=== PATIENT | male | born 1970 | race African-American/Black ===

== ENCOUNTER 2017-10-26 00:39 | Emergency (ER) | payer MEDICAID ==
[~2017-10-26] VITALS: Ht 177.8 cm; Wt 99.8 kg
[2017-10-26 00:50] VITALS: BP 137/99
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
[2017-10-26] MEDS ORDERED: Magnesium Citrate Liq Btl ORAL ONE ×2 (01:15→04:00)
[2017-10-26] MEDS ORDERED: Fleet's Enema 133ml RECTAL ONE ×2 (01:15→04:00)
[2017-10-26 01:54] LABS: BASOPHILS % (AUTO) 0.8 % (0.0-2.0); EOSINOPHILS % (AUTO) 5.6 % (0.0-3.0); HEMATOCRIT 45.1 % (42.0-52.0); HEMOGLOBIN 15.1 G/DL (14.2-18.0); LYMPHOCYTES % (AUTO) 17.2 % (20.0-45.0); MEAN CORPUSCULAR VOLUME 95 FL (80-99); MONOCYTES % (AUTO) 12.2 % (1.0-10.0); NEUTROPHILS % (AUTO) 64.1 % (45.0-75.0); PLATELET COUNT 190 K/UL (150-450); RED BLOOD COUNT 4.75 M/UL (4.70-6.10); RED CELL DISTRIBUTION WIDTH 11.7 % (11.6-14.8); WHITE BLOOD COUNT 6.7 K/UL (4.8-10.8)
[2017-10-26 02:03] LABS: ANION GAP 8 mmol/L (5-15); BLOOD UREA NITROGEN 28 mg/dL (7-18); CARBON DIOXIDE 27 MMOL/L (21-32); CHLORIDE 99 MMOL/L (98-107); CREATININE 1.6 MG/DL (0.55-1.30); POTASSIUM 4.2 MMOL/L (3.5-5.1); SODIUM 134 MMOL/L (136-145)
[2017-10-26 02:10] LABS: ALANINE AMINOTRANSFERASE 63 U/L (12-78); ALBUMIN 3.4 G/DL (3.4-5.0); ALBUMIN/GLOBULIN RATIO 0.8 (1.0-2.7); ALKALINE PHOSPHATASE 56 U/L (46-116); ASPARTATE AMINO TRANSFERASE 57 U/L (15-37)
[2017-10-26 02:30] VITALS: BP 124/82
[2017-10-26] MEDS ORDERED: COLACE100 MG ORAL (04:00)
[2017-10-26] MEDS ORDERED: SENNA LAX8.6 MG PO (04:00)
[2017-10-26 04:15] VITALS: BP 120/78
[2017-10-26 04:40] VITALS: BP 120/78
[2017-10-26 04:43] LABS: APPEARANCE,URINE CLEAR; BILIRUBIN, URINE NEGATIVE (NEGATIVE); COLOR,URINE PALE YELLOW; GLUCOSE, URINE (UA) NEGATIVE (NEGATIVE); KETONES,URINE NEGATIVE (NEGATIVE); LEUKOCYTE ESTERASE ,URINE NEGATIVE (NEGATIVE); NITRITE,URINE NEGATIVE (NEGATIVE); PH,URINE 6 (4.5-8.0); PROTEIN,URINE 1+ (NEGATIVE); UROBILINOGEN,URINE NORMAL MG/DL (0.0-1.0)
--- NOTE | 2017-10-26 11:04 | Diagnostic Imaging Report ---
Indication: Abdominal pain Technique: Supine view of the abdomen Comparison: none Findings: Exam is limited due to body habitus. Bowel gas pattern is unremarkable. No unusual masses or calcifications. Impression: No acute process
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
== END 2017-10-26 04:40 | disposition home or self-care (01) ==
LOC: EMR 01:54
DX: K59.00 Constipation, unspecified (principal); S36.039D Unspecified laceration of spleen, subsequent encounter; S22.42XD Multiple fractures of ribs, left side, subsequent encounter for fracture with routine healing; J98.11 Atelectasis; J90 Pleural effusion, not elsewhere classified; V49.9XXD Car occupant (driver) (passenger) injured in unspecified traffic accident, subsequent encounter
CPT/HCPCS: 36415; 74018; 74176; 80053; 81003; 83690; 85025; 96374; 99284; J2405

== ENCOUNTER 2018-05-13 01:09 | Emergency (ER) | payer SELFPAY ==
[~2018-05-13] VITALS: Ht 177.8 cm; Wt 99.8 kg
[~2018-05-13 01:09] MED LIST: COLACE100 MG ORAL; SENNA LAX8.6 MG PO
[2018-05-13] MEDS ORDERED: IBUPROFEN600 MG ORAL (02:07)
[2018-05-13 02:12] VITALS: BP 157/98
--- NOTE | 2018-05-13 02:15 | Emergency Room Report ---
History of Present Illness General Chief Complaint: Lower Extremity Injury Source: Patient Present Illness HPI Patient reports stubbing and hitting his small toe approximately 4 days ago As the pain persisted with walking he presents for further eval Denies any ankle pain denies any knee pain Pain to the lateral aspect of the foot is 4 out of 10 Denies any open cuts or wounds Denies any focal weakness Allergies: Coded Allergies: No Known Allergies (Unverified , 10/26/17) Patient History Past Medical History: see triage record Pertinent Family History: none Reviewed Nursing Documentation: PMH: Agreed; PSxH: Agreed Nursing Documentation-PMH Past Medical History: No History, Except For Hx Hypertension: Yes Review of Systems All Other Systems: negative except mentioned in HPI Physical Exam Vital Signs Date Time Temp Pulse Resp B/P (MAP) Pulse Ox O2 Delivery O2 Flow Rate FiO2 05/13/18 01:11 97.9 95 16 159/112 94 Room Air Sp02 EP Interpretation: reviewed, normal General Appearance: well appearing, no apparent distress Head: normocephalic, atraumatic Eyes: bilateral eye PERRL, bilateral eye EOMI ENT: hearing grossly normal, normal pharynx, TMs + canals normal, uvula midline Neck: full range of motion, supple, no meningismus, no bony tend Respiratory: lungs clear, normal breath sounds, no rhonchi, no respiratory distress, no retraction, no accessory muscle use Cardiovascular #1: normal peripheral pulses, regular rate, rhythm, no edema, no gallop, no JVD, no murmur Gastrointestinal: normal bowel sounds, non tender, soft, no mass, no organomegaly, non-distended, no guarding, no hernia, no pulsatile mass, no rebound Genitourinary: no CVA tenderness Musculoskeletal: other - Tender on palpation of the distal metatarsal fifth toe Neurologic: oriented x3, responsive, driver recruiter III-XII nml as tested, motor strength/ tone normal, sensory intact Psychiatric: mood/affect normal Skin: normal color, no rash, warm/dry, palpation normal Lymphatic: normal inspection, no adenopathy Procedures Splinting Progress Postop shoe is applied With appropriate relief of pressure on the small toe Patient provided crutches and will be nonweightbearing remains neurovascularly intact on recheck by myself Medical Decision Making Diagnostic Impression: Primary Impression: foot fracture ER Course Given the history and exam x-ray imaging was obtained It is evidence of distal metatarsal fracture This is almost 5 days post fracture now patient provided with acute intervention and will be nonweightbearing with close outpatient follow-up Other X-Ray Diagnostic Results Other X-Ray Diagnostic Results : X-Ray ordered: Left foot # of Views/Limited Vs Complete: 3 View Indication: Pain EP Interpretation: Yes Interpretation: no dislocation, no soft tissue swelling, other - Positive proximal phalangeal fracture Impression: Other - Acute fracture Electronically Signed by: Maribel Francisco DO Last Vital Signs Date Time Temp Pulse Resp B/P (MAP) Pulse Ox O2 Delivery O2 Flow Rate FiO2 05/13/18 01:11 97.9 95 16 159/112 94 Room Air Status: improved Disposition: HOME, SELF-CARE Condition: Improved Scripts Ibuprofen* (MOTRIN*) 600 Mg Tablet 600 MG ORAL Q8H PRN for For Pain, #20 TAB 0 Refills Prov: Maribel Francisco DO 05/13/18 Referrals: NOT CHOSEN IPA/MD,REFERRING (PCP) Patient Instructions: Metatarsal Fracture Additional Instructions: Patient is provided with the discharge instructions notified to follow up with primary doctor in the next 2-3 days otherwise return to the er with any worsening symptoms. Please note that this report is being documented using [employer] technology. This can lead to erroneous entry secondary to incorrect interpretation by the dictating instrument. Maribel Francisco DO May 13, 2018 02:15
--- NOTE | 2018-05-13 11:07 | Diagnostic Imaging Report ---
Indication: Pain in left toes after trauma Technique: 3 views left foot Comparison: none Findings: There is an acute oblique fracture of the fifth proximal phalanx. There is a slightly distracted oblique fracture of the medial base of the first proximal phalanx. This involves the articular surface. The fracture line is somewhat indistinct for this fracture. No other acute fractures. No dislocations. The joint spaces are preserved. Impression: Positive for acute fifth proximal phalangeal fracture. This is concordant with findings reported in the electronic medical record by the ER physician Positive for first proximal phalangeal fracture. Fracture line is somewhat indistinct, so this may be subacute rather than acute. Correlate with clinical findings. This finding was reported to Dr. Lao in the emergency room at the time of interpretation.
== END 2018-05-13 02:12 | disposition home or self-care (01) ==
LOC: EMR 01:21
DX: S92.352A Displaced fracture of fifth metatarsal bone, left foot, initial encounter for closed fracture (principal); M79.672 Pain in left foot; W22.09XA Striking against other stationary object, initial encounter; Y93.9 Activity, unspecified; Y92.9 Unspecified place or not applicable; Y99.9 Unspecified external cause status
CPT/HCPCS: 29515; 99283

== ENCOUNTER 2019-02-04 03:20 | Emergency (ER) | payer OTHER ==
[~2019-02-04] VITALS: Ht 177.8 cm; Wt 95.3 kg
[~2019-02-04 03:20] MED LIST changes: +IBUPROFEN600 MG ORAL
[2019-02-04 03:37] VITALS: BP 151/103
[2019-02-04] MEDS ORDERED: Morphine Sulfate 4mg/ml Inj (IV USE ONLY) IVP ONE (03:45)
--- NOTE | 2019-02-04 03:45 | NUR ---
ED Nurse Note: Patient waked in to ER c/o left flank pain 02/20. Stated that had difficulty to pee at home. AAO x4, VSS at this time, skin is dry warm to touch.
--- NOTE | 2019-02-04 03:47 | Emergency Room Report ---
History of Present Illness General Chief Complaint: Male Urogenital Problems Source: Patient Present Illness HPI 48-year-old male history of kidney stones presents with right flank pain that started suddenly 3 hours prior to arrival, he endorses a sharp pain, no aggravating or relieving factors, he endorses a spasm, that is constant, patient denies any dysuria, no fever no chills, no chest pain, no shortness of breath, patient presents for evaluation for kidney stones Allergies: Coded Allergies: No Known Allergies (Unverified , 10/26/17) Patient History Past Medical History: see triage record Social History: Reports: drug use - marijuana Reviewed Nursing Documentation: PMH: Agreed; PSxH: Agreed Nursing Documentation-PMH Hx Hypertension: Yes Review of Systems Constitutional: Denies: chills, fever Eye: Denies: blurred vision, double vision ENT: Denies: throat pain, nasal discharge Respiratory: Denies: cough, shortness of breath Cardiovascular: Denies: chest pain, palpitations Gastrointestinal: Reports: abdominal pain, nausea; Denies: diarrhea, vomiting Genitourinary: Denies: dysuria, pain Musculoskeletal: Denies: back pain, muscle pain Skin: Denies: rash, lesions Neurological: Denies: headache, focal weakness Hematologic/Lymphatic: Denies: easy bleeding, easy bruising All Other Systems: negative except mentioned in HPI Physical Exam Vital Signs Date Time Temp Pulse Resp B/P (MAP) Pulse Ox O2 Delivery O2 Flow Rate FiO2 02/04/19 03:24 98.2 84 20 151/103 (119) 97 Room Air Sp02 EP Interpretation: reviewed, normal General Appearance: well appearing, no apparent distress, alert Head: normocephalic, atraumatic Eyes: bilateral eye PERRL, bilateral eye EOMI ENT: uvula midline, moist mucus membranes Neck: supple, thyroid normal, supple/symm/no masses Respiratory: lungs clear, no respiratory distress, no retraction, no accessory muscle use Cardiovascular #1: normal peripheral pulses, regular rate, rhythm, no edema, no gallop, no murmur Gastrointestinal: non tender, soft, no guarding, no rebound Musculoskeletal: normal inspection Neurologic: alert, oriented x3 Psychiatric: mood/affect normal Skin: no rash, warm/dry Medical Decision Making Diagnostic Impression: Primary Impression: Ureterolithiasis ER Course 48-year-old male presents with right flank pain, on the differential includes appendicitis, renal colic, ureterolithiasis, SBO, patient found to have a kidney stone on CT, fluids given, patient's pain is well controlled Repeat examination, patient's abdomen is completely soft, nontender Cr. unchanged from 2018 Cures report ran, negative for recent scripts Laboratory Tests Test 02/04/19 04:30 02/04/19 05:10 White Blood Count 9.2 K/UL (4.8-10.8) Red Blood Count 4.60 M/UL (4.70-6.10) L Hemoglobin 14.3 G/DL (14.2-18.0) Hematocrit 43.6 % (42.0-52.0) Mean Corpuscular Volume 95 FL (80-99) Mean Corpuscular Hemoglobin 31.1 PG (27.0-31.0) H Mean Corpuscular Hemoglobin Concent 32.8 G/DL (32.0-36.0) Red Cell Distribution Width 12.7 % (11.6-14.8) Platelet Count 212 K/UL (150-450) Mean Platelet Volume 6.2 FL (6.5-10.1) L Neutrophils (%) (Auto) 78.3 % (45.0-75.0) H Lymphocytes (%) (Auto) 13.8 % (20.0-45.0) L Monocytes (%) (Auto) 6.3 % (1.0-10.0) Eosinophils (%) (Auto) 1.0 % (0.0-3.0) Basophils (%) (Auto) 0.6 % (0.0-2.0) Sodium Level 137 MMOL/L (136-145) Potassium Level 3.3 MMOL/L (3.5-5.1) L Chloride Level 101 MMOL/L (98-107) Carbon Dioxide Level 28 MMOL/L (21-32) Anion Gap 8 mmol/L (5-15) Blood Urea Nitrogen 22 mg/dL (7-18) H Creatinine 1.6 MG/DL (0.55-1.30) H Estimate Glomerular Filtration Rate 56.0 mL/min (>60) Glucose Level 150 MG/DL (74-106) H Calcium Level 9.5 MG/DL (8.5-10.1) Total Bilirubin 0.4 MG/DL (0.2-1.0) Aspartate Amino Transferase (AST) 28 U/L (15-37) Alanine Aminotransferase (ALT) 26 U/L (12-78) Alkaline Phosphatase 49 U/L (46-116) Total Protein 7.5 G/DL (6.4-8.2) Albumin 4.3 G/DL (3.4-5.0) Globulin 3.2 g/dL Albumin/Globulin Ratio 1.3 (1.0-2.7) Lipase 333 U/L (73-393) Urine Color Pale yellow Urine Appearance Clear Urine pH 6 (4.5-8.0) Urine Specific [place] 1.015 (1.005-1.035) Urine Protein Negative (NEGATIVE) Urine Glucose (UA) Negative (NEGATIVE) Urine Ketones Negative (NEGATIVE) Urine Blood 5+ (NEGATIVE) H Urine Nitrite Negative (NEGATIVE) Urine Bilirubin Negative (NEGATIVE) Urine Urobilinogen Normal MG/DL (0.0-1.0) Urine Leukocyte Esterase Negative (NEGATIVE) Urine RBC Tntc /HPF (0 - 0) H Urine WBC 0 /HPF (0 - 0) Urine Squamous Epithelial Cells None /LPF (NONE/OCC) Urine Bacteria Few /HPF (NONE) Cr. unchanged from 2018 Cures report ran, negative for recent scripts CT/MRI/US Diagnostic Results CT/MRI/US Diagnostic Results : Impression Preliminary Findings Only See Final Report For Complete Findings CT ABDOMEN & PELVIS Without Contrast: Comparison: 10/26/2017. A 4 mm stone is seen in the distal right ureter resulting in mild/moderate right -sided hydroureteronephrosis with associated perinephric and periureteral fat stranding. Bilateral nonobstructive nephrolithiasis is also noted. Remaining solid organs are grossly unremarkable this noncontrast study. Normal appendix. No bowel obstruction. No free air. Radiologist: Jeff Ridley MD Study ready at 04:37 and initial results transmitted at 05:05 Last Vital Signs Date Time Temp Pulse Resp B/P (MAP) Pulse Ox O2 Delivery O2 Flow Rate FiO2 02/04/19 03:37 98.2 20 151/103 97 Room Air 02/04/19 03:24 84 Disposition: HOME, SELF-CARE Scripts Cephalexin* (CEPHALEXIN*) 500 Mg Tablet 500 MG ORAL EVERY 6 HOURS, #40 CAP Prov: Khris Hunt MD 02/04/19 Tamsulosin HCl (Flomax) 0.4 Mg Cap.er.24h 0.4 MG ORAL DAILY, #30 CAP Prov: Khris Hunt MD 02/04/19 Naproxen* (NAPROSYN*) 250 Mg Tablet 250 MG ORAL BID PRN for For Pain, #20 TAB 0 Refills Prov: Khris Hunt MD 02/04/19 Hydrocodone Bit/Acetaminophen 5-325* (NORCO 5-325*) 1 Each Tablet 1 TAB ORAL Q6H PRN for For Pain, #12 TAB 0 Refills Prov: Khris Hunt MD 02/04/[address]: [facility] Patient Instructions: Kidney Stones, [id number], Renal Colic Additional Instructions: The patient was provided with discharge instructions, notified to follow-up with a primary care doctor and or specialist in the next 24-48 hours, and to return to the ED if they have worsening of their symptoms. Please note that this report is being documented using [email or web address] technology. This can lead to erroneous entry secondary to incorrect interpretation by the dictating instrument. Follow Up with urology in 24 to 48 hours Khris Hunt MD Feb 04, 2019 03:47
[2019-02-04] MEDS ORDERED: Morphine Sulfate 4mg/ml Inj (IV USE ONLY) ONE (03:55)
--- NOTE | 2019-02-04 04:20 | NUR ---
ED Nurse Note: Override Morphine and Zofran, since it is not in the pyxes.
[2019-02-04 04:37] LABS: BASOPHILS % (AUTO) 0.6 % (0.0-2.0); HEMATOCRIT 43.6 % (42.0-52.0); HEMOGLOBIN 14.3 G/DL (14.2-18.0); LYMPHOCYTES % (AUTO) 13.8 % (20.0-45.0); MEAN CORPUSCULAR VOLUME 95 FL (80-99); MONOCYTES % (AUTO) 6.3 % (1.0-10.0); NEUTROPHILS % (AUTO) 78.3 % (45.0-75.0); PLATELET COUNT 212 K/UL (150-450); RED CELL DISTRIBUTION WIDTH 12.7 % (11.6-14.8); WHITE BLOOD COUNT 9.2 K/UL (4.8-10.8)
[2019-02-04 04:44] LABS: ANION GAP 8 mmol/L (5-15); BLOOD UREA NITROGEN 22 mg/dL (7-18); CALCIUM 9.5 MG/DL (8.5-10.1); CARBON DIOXIDE 28 MMOL/L (21-32); CHLORIDE 101 MMOL/L (98-107); CREATININE 1.6 MG/DL (0.55-1.30); POTASSIUM 3.3 MMOL/L (3.5-5.1); SODIUM 137 MMOL/L (136-145)
[2019-02-04 04:48] LABS: ALANINE AMINOTRANSFERASE 26 U/L (12-78); ALBUMIN 4.3 G/DL (3.4-5.0); ALBUMIN/GLOBULIN RATIO 1.3 (1.0-2.7); ALKALINE PHOSPHATASE 49 U/L (46-116); ASPARTATE AMINO TRANSFERASE 28 U/L (15-37); BILIRUBIN,TOTAL 0.4 MG/DL (0.2-1.0)
[2019-02-04 05:27] LABS: APPEARANCE,URINE CLEAR; BILIRUBIN, URINE NEGATIVE (NEGATIVE); COLOR,URINE PALE YELLOW; GLUCOSE, URINE (UA) NEGATIVE (NEGATIVE); KETONES,URINE NEGATIVE (NEGATIVE); LEUKOCYTE ESTERASE ,URINE NEGATIVE (NEGATIVE); NITRITE,URINE NEGATIVE (NEGATIVE); PH,URINE 6 (4.5-8.0); PROTEIN,URINE NEGATIVE (NEGATIVE); UROBILINOGEN,URINE NORMAL MG/DL (0.0-1.0)
[2019-02-04 05:35] VITALS: BP 148/98
[2019-02-04] MEDS ORDERED: NORCO 5-325 TA1 EACH ORAL (05:37)
[2019-02-04] MEDS ORDERED: NAPROXEN250 MG ORAL (05:37)
[2019-02-04] MEDS ORDERED: FLOMAX0.4 MG ORAL (05:37)
[2019-02-04] MEDS ORDERED: CEPHALEXIN500 M1 ORAL (05:49)
[2019-02-04] MEDS ORDERED: cefTRIAXone 1 GM in NS 55 ML IVPB SCH (06:00)
[2019-02-04 06:35] VITALS: BP 148/98
--- NOTE | 2019-02-04 07:07 | NUR ---
ER DISCHARGE NOTE: Patient is cleared to be discharged per ERMD, pt is aox4, on room air, with stable vital signs. pt was given dc and prescription instructions, pt was able to verbalize understanding, pt id band and iv site removed without complications. pt is able to ambulate with steady gait. pt took all belongings.
--- NOTE | 2019-02-04 12:44 | Diagnostic Imaging Report ---
Indication: Abdominal pain Technique: Continuous helical transaxial imaging of the abdomen and pelvis was obtained from the lung bases to the pubic symphysis. No intravenous contrast was administered. Coronal 2-D reformats were also obtained. Automatic Exposure Control was utilized. Total Dose length Product (DLP): [address] Dose Index Volume (CTDIvol): 0.15, 18.16 mGy Comparison: 10/26/2017 Findings: There is mild posterior dependent atelectasis. The heart is enlarged. There is a 4 mm stone in the distal right ureter just proximal to the UVJ associated with mild right hydroureter nephrosis. There are tiny punctate nonobstructive stones within both kidneys. The appendix is normal. Gallbladder is unremarkable. Bowel gas pattern is nonobstructive. There is a right inguinal hernia containing fat. There is no free fluid. IMPRESSION: 4 mm right distal ureteral stone with associated hydroureteronephrosis. Other nonobstructive stones within both kidneys. [facility] has communicated the preliminary results to the Emergency Department. Their findings are largely concordant with this report.. Other incidental findings as above The CT scanner at [facility] is accredited by the [employer] and the scans are performed using dose optimization techniques as appropriate to a performed exam including Automatic Exposure control.
== END 2019-02-04 06:35 | disposition home or self-care (01) ==
LOC: EMR 03:39
DX: N13.2 Hydronephrosis with renal and ureteral calculous obstruction (principal); I10 Essential (primary) hypertension
CPT/HCPCS: 36415; 74176; 80053; 81003; 83690; 85025; 96361; 96374; 96375; 99284; J0696; J2270; J2405

== ENCOUNTER 2020-02-10 01:06 | Emergency (ER) | payer OTHER ==
[~2020-02-10] VITALS: Ht 177.8 cm; Wt 99.8 kg
[~2020-02-10 01:06] MED LIST changes: +CEPHALEXIN500 M1 ORAL; +FLOMAX0.4 MG ORAL; +NAPROXEN250 MG ORAL; +NORCO 5-325 TA1 EACH ORAL
--- NOTE | 2020-02-10 01:28 | NUR ---
ED Nurse Note: Patient walked in from home d/t aching, shooting pain on upper back radiating to right shoulder, pain 10/10. Patient states this has been going on for 4-5 days. Patient aao x 4 and ambulatory with steady gait. Patient changed into gown and placed on awake overnight monitor. Patient blood pressure elevated at 169/112, patient reports he has not taken in hypertension medications today. No acute distress noted during assessment.
[2020-02-10 01:30] VITALS: BP 169/112
--- NOTE | 2020-02-10 01:31 | NUR ---
ED Nurse Note: Patient denies injury or trauma.
--- NOTE | 2020-02-10 01:33 | Emergency Room Report ---
History of Present Illness General Chief Complaint: Upper Extremity Injury Source: Patient Present Illness HPI This is a 49-year-old male with history of high blood pressure. He presents with chief complaint of neck pain. Onset for last 4 to 5 days. Worse when he put his head backward. He has shooting pain down his right arm. Pain is 9 out of 10. Worse with movement of his neck. Better with rest. No trauma. No fever. No weight loss. No incontinence of bowel or urine. Never had this problem before. [id number] medication not helping. He did not take his blood pressure medication today. 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 Patient History Past Medical History: see triage record, old chart reviewed, HTN Past Surgical History: none Pertinent Family History: none Social History: Denies: smoking Immunizations: other Reviewed Nursing Documentation: PMH: Agreed; PSxH: Agreed Nursing Documentation-PMH Past Medical History: No History, Except For Hx Hypertension: Yes Review of Systems Eye: Denies: eye pain, blurred vision ENT: Denies: ear pain, nose congestion, throat swelling Respiratory: Denies: cough, shortness of breath Cardiovascular: Denies: chest pain, palpitations Gastrointestinal: Denies: abdominal pain, diarrhea, nausea, vomiting Musculoskeletal: Reports: joint pain; Denies: back pain Skin: Denies: rash Neurological: Denies: headache, numbness Endocrine: Denies: increased thirst, increased urine Hematologic/Lymphatic: Denies: easy bruising All Other Systems: negative except mentioned in HPI Physical Exam Vital Signs Date Time Temp Pulse Resp B/P (MAP) Pulse Ox O2 Delivery O2 Flow Rate FiO2 02/10/20 01:16 98.6 83 18 180/119 (139) 95 Room Air Vitals with hypertension Sp02 EP Interpretation: reviewed, normal General Appearance: well appearing, no apparent distress, alert Head: normocephalic, atraumatic Eyes: bilateral eye PERRL, bilateral eye EOMI ENT: hearing grossly normal, normal pharynx Neck: full range of motion, supple, no meningismus Respiratory: chest non-tender, lungs clear, normal breath sounds Cardiovascular #1: regular rate, rhythm, no murmur Gastrointestinal: normal bowel sounds, non tender, no mass, no organomegaly, no bruit, non-distended Musculoskeletal: back normal, normal range of motion, gait/station normal Psychiatric: mood/affect normal Medical Decision Making Diagnostic Impression: Primary Impression: Degenerative disc disease, cervical Additional Impressions: Cervical radiculopathy, acute Hypertension ER Course Patient presents with symptom consistent with cervical radiculopathy. CT scan show degenerative changes around C6-C7. He may have some stenosis. No evidence of cauda equina syndrome, spinal epidural abscess or neoplastic process. He may benefit from an MRI of the cervical spine. CT/MRI/US Diagnostic Results CT/MRI/US Diagnostic Results : Imaging Test Ordered: CT cervical spine Impression Read by radiologist as negative. Per my reading however, I see degenerative changes around C6-C7. Last Vital Signs Date Time Temp Pulse Resp B/P (MAP) Pulse Ox O2 Delivery O2 Flow Rate FiO2 02/10/20 01:30 98.6 78 19 169/112 99 Room Air Status: improved Disposition: HOME, SELF-CARE Condition: Stable Scripts Prednisone* (PREDNISONE*) 20 Mg Tablet 40 MG ORAL DAILY, #14 TAB Prov: Denver Natarajan MD 02/10/20 Hydrocodone Bit/Acetaminophen 5-325* (NORCO 5-325 TABLET*) 1 Each Tablet 1 TAB ORAL Q6H PRN for FOR PAIN, #20 TAB 0 Refills Prov: Denver Natarajan MD 02/10/20 Ibuprofen* (MOTRIN*) 600 Mg Tablet 600 MG ORAL Q6H PRN for For Pain, #30 TAB 0 Refills Prov: Denver Natarajan MD 02/10/20 Referrals: [facility]ERR[facility] (PCP) Additional Instructions: Follow-up with your doctor in 7 days. Take your blood pressure medication. You may benefit from MRI of your cervical spine. Return if symptoms worsen. Denver Natarajan MD Feb 10, 2020 01:33
[2020-02-10] MEDS ORDERED: Ketorolac 60mg Inj IM ONE (01:45)
--- NOTE | 2020-02-10 01:52 | NUR ---
ED Nurse Note: Patient taken to CT in stable condition
--- NOTE | 2020-02-10 02:10 | NUR ---
ED Nurse Note: Patient returned from CT in stable condition and placed back on training project manager. Patient reassessed, patient reports pain 0/10 during reassessment, states pain is at 6/[address] scan.
--- NOTE | 2020-02-10 02:35 | Diagnostic Imaging Report ---
EXAM: CT Cervical Spine Without Intravenous Contrast CLINICAL HISTORY: PAIN TECHNIQUE: Axial computed tomography images of the cervical spine without intravenous contrast. CTDI is 11.2 mGy and DLP is 328.2 mGy-cm. One or more of the following dose reduction techniques were used: automated exposure control, adjustment of the mA and/or kV according to patient size, use of iterative reconstruction technique. COMPARISON: No relevant prior studies available. FINDINGS: Vertebrae: No acute fracture or traumatic malalignment. Discs/spinal canal/neural foramina: No acute findings. No significant spinal canal or neuroforaminal stenosis. Soft tissues: Unremarkable. IMPRESSION: No acute findings in the cervical spine.
[2020-02-10] MEDS ORDERED: NORCO 5-325 TA1 EAC1 ORAL (02:55)
[2020-02-10] MEDS ORDERED: PREDNISONE20 MG ORAL (02:55)
[2020-02-10] MEDS ORDERED: IBUPROFEN600 M1 ORAL (02:55)
[2020-02-10 03:00] VITALS: BP 137/101
--- NOTE | 2020-02-10 03:00 | NUR ---
ER DISCHARGE NOTE: Patient is cleared to be discharged per ERMD, pt is aox4, on room air, with stable vital signs. pt was given dc and prescription instructions, pt was able to verbalize understanding, pt id band removed. pt is able to ambulate with steady gait. pt took all belongings. pt stable upon discharge.
== END 2020-02-10 03:00 | disposition home or self-care (01) ==
LOC: EMR 01:22
DX: M50.323 Other cervical disc degeneration at C6-C7 level (principal); M54.12 Radiculopathy, cervical region; I10 Essential (primary) hypertension
CPT/HCPCS: 72125; 96372; Z7502; 99284

== ENCOUNTER 2020-02-18 05:31 | Emergency (ER) | payer OTHER ==
[~2020-02-18] VITALS: Ht 177.8 cm; Wt 102.1 kg
[~2020-02-18 05:31] MED LIST changes: +IBUPROFEN600 M1 ORAL; +NORCO 5-325 TA1 EAC1 ORAL; +PREDNISONE20 MG ORAL
[2020-02-18 05:43] VITALS: BP 160/108
[2020-02-18] MEDS ORDERED: Ketorolac 30mg Inj IM ONE (06:15)
[2020-02-18] MEDS ORDERED: GABAPENTIN100 MG ORAL (06:41)
[2020-02-18 06:59] VITALS: BP 148/99
--- NOTE | 2020-02-18 07:08 | Emergency Room Report ---
History of Present Illness General Chief Complaint: Pain Present Illness HPI Disclaimer: Please note that this report is being documented using [employer] technology. This can lead to erroneous entry secondary to incorrect interpretation by the dictating instrument. HPI: 49-year-old male history of hypertension presents with right shoulder pain. Pain is been present for 2 weeks. He woke up with the pain 2 weeks ago. Starts in the neck radiating down to the right shoulder. Worse with movement. About 8 out of 10. Patient seen last week had a CT scan of the C- spine with possible degenerative changes. Was started on prednisone, anti- inflammatories and pain control with minimal relief. He returns today for persistent pain. Patient does have follow-up with his primary care doctor about 1 week. Denies any injuries. No numbness or tingling. 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 Nursing Documentation-PMH Hx Hypertension: Yes Review of Systems All Other Systems: negative except mentioned in HPI Physical Exam Vital Signs Date Time Temp Pulse Resp B/P (MAP) Pulse Ox O2 Delivery O2 Flow Rate FiO2 02/18/20 05:36 97.7 88 20 167/112 (130) 99 Room Air Sp02 EP Interpretation: reviewed, normal General Appearance: well appearing, no apparent distress Head: normocephalic, atraumatic Eyes: bilateral eye PERRL, bilateral eye EOMI ENT: hearing grossly normal, moist mucus membranes Neck: full range of motion, supple, other - No midline tenderness Respiratory: lungs clear, normal breath sounds, no rhonchi, no respiratory distress, no retraction, no wheezing Cardiovascular #1: normal peripheral pulses, regular rate, rhythm, no murmur Gastrointestinal: non tender, soft, non-distended, no guarding Musculoskeletal: other - Full range of motion of right shoulder with pain with abduction above 90 degrees. 2+ pulses throughout Neurologic: alert, oriented x3, no focal defects Skin: normal color, warm/dry Medical Decision Making Diagnostic Impression: Primary Impression: Right shoulder pain ER Course Differential diagnosis included but not limited to radiculopathy, rotator cuff injury, arthritis, less likely ACS, pneumonia. Patient in no acute distress on exam. He was neurovascularly intact. He had full range of motion of right shoulder with some pain. His pain was not relieved after prednisone ibuprofen and [facility]. I added gabapentin I did do an x-ray of the right shoulder which showed no acute fracture dislocation. He does have follow-up with his primary doctor in 1 week. I recommended discussion of possible MRI for further investigation and orthopedic referral. Patient was provided copies of his CT scan of his CT spine and right shoulder for follow-up. Toradol given for pain. Stable for discharge. Other X-Ray Diagnostic Results Other X-Ray Diagnostic Results : X-Ray ordered: Right shoulder # of Views/Limited Vs Complete: 3 View Indication: Pain Interpretation: no dislocation, no fractures Electronically Signed by: Robles Gaviria MD Last Vital Signs Date Time Temp Pulse Resp B/P (MAP) Pulse Ox O2 Delivery O2 Flow Rate FiO2 02/18/20 05:43 97.7 90 20 160/108 99 Room Air Disposition: HOME, SELF-CARE Condition: Stable Scripts Gabapentin* (GABAPENTIN*) 100 Mg Capsule 100 MG ORAL THREE TIMES A DAY, #60 CAP Take 1 tablet at night on day 1, 1 tablet twice daily on day 2 and 3 tablets daily on day 3. Prov: Robles Gaviria M.D. 02/18/20 Patient Instructions: Shoulder Pain, [id number] Additional Instructions: Patient is instructed to follow-up with her primary care doctor, primary care clinic or [facility] as scheduled. You may need referral to orthopedics. Disclaimer: Please note that this report is being documented using [employer] technology. This can lead to erroneous entry secondary to incorrect interpretation by the dictating instrument. Robles Gaviria M.D. Feb 18, 2020 07:08
--- NOTE | 2020-02-18 09:36 | Diagnostic Imaging Report ---
EXAM: X-RAY XRAY Shoulder Compl R CLINICAL HISTORY: Shoulder pain. COMPARISON: None FINDINGS: Total of 3 views of the right shoulder were obtained. Alignment is anatomic. There is no fracture, bony lesions or erosions. Joint spaces are unremarkable. Surrounding soft tissue is normal. IMPRESSION: NO FRACTURE.
== END 2020-02-18 06:59 | disposition home or self-care (01) ==
LOC: EMR 06:13
DX: M25.511 Pain in right shoulder (principal); I10 Essential (primary) hypertension
CPT/HCPCS: 73030; 96372; J1885; Z7502; 99283